=== PATIENT | female | born 1955 | race Caucasian/White ===

== ENCOUNTER 2023-09-18 17:00 | Inpatient (IN) | payer OTHER, SELFPAY ==
[2023-09-18] VITALS (10 sets, daily range): BP systolic 130–181; BP diastolic 57–115; BMI 20.4; BMI 19.0; BMI 19.5
[2023-09-18 12:35] LABS: % Basophils 0.4 % (0-2); % Eosinophils 0.5 % (0-6); % Immature Granulocytes 0.4 % (0-0.5); % Lymphocytes 5.7 % (20.5-51.1); % Monocytes 4.4 % (1.7-9.3); % Neutrophils 88.6 % (42.2-75.2); Absolute Basophils 0.1 10^3/uL (0-0.2); Absolute Eosinophils 0.1 10^3/uL (0-0.7); Absolute Immature Granulocytes 0.1 10^3/uL (0-0.05); Absolute Lymphocytes 0.9 10^3/uL (1.2-3.4); Absolute Monocytes 0.7 10^3/uL (0.1-0.6); Hemoglobin 13.1 g/dL (12.0-16.0); Mean Corp Hgb Conc. 35.4 g/dL (33.0-37.0); Mean Corpuscular Hgb 34.2 pg (27.0-31.0); Mean Corpuscular Volume 96.6 fL (81.0-99.0); Mean Platelet Volume 9.8 fL (7.4-10.4); Nucleated Red Blood Cells % 0 %; Platelet Count 312 10^3/uL (130-400); Red Blood Cell Count 3.83 10^6/uL (4.20-5.40); Red Cell Dist. Width 13.6 % (11.5-14.5); White Blood Cell Count 15.8 10^3/uL (4.8-10.8)
--- NOTE | 2023-09-18 12:38 | ED.GENMED ---
History of Present Illness
General
Chief Complaint: Abdominal Symptoms
Source: patient
Exam Limitations: none
Time Seen by Provider: 09/18/23 12:30
Nursing documentation reviewed up to this point in time: agreed with
Travel History
Have you had any contact with someone who has COVID-19?: No
Do you have any symptoms of coronavirus? Fever > 100 degrees, chills, cough, shortness of breath, sore throat, loss of taste or smell, muscle aches, or headache?: No
History of Present Illness
History of Present Illness:
68-year-old female presents emergency department complaining of vomiting all night, shortness of breath, chest tightness, body aches.
Past History
Past History
ED Past Medical History: Asthma, CAD, CHF, Psychiatric (Anxiety, Depression, Obsessive compulsive disorder) and Other (Rheumatoid arthritis and lumbar disc disease, cardiomyopathy)
ED Past Surgical History: Gynecological (partial hysterectomy) and Orthopedic (Back surgery X 2 L4-L5, Left foot surgery)
Social History
Tobacco: Former smoker
Alcohol: Occasional
Drug: Marijuana
Personal:
Living: with family
Family History
Family History: Unable to obtain
Review of Systems
Review of Systems
Allergies reviewed?: Yes
All Other Systems: Not applicable
Constitutional: Reports chills
EENT: Reports no symptoms
Respiratory: Reports cough and trouble breathing
Cardiac: Reports no symptoms
ABD/GI: Reports vomiting and diarrhea
: Reports no symptoms
Musculoskeletal: Reports muscle pain
Skin: Reports no symptoms
Neurological: Reports no symptoms
Endocrine: Reports no symptoms
Hematologic/Lymphatic: Reports no symptoms
Psychiatric: Reports no symptoms
Phy Exam
Physical Exam
Physical Exam:
Physical Exam
General: Appears uncomfortable
Neck: supple. no meningeal signs. normal posterior pharynx
Heart: s1/s2 tachycardia, no murmur. equal radial
pulses.
HEENT: Pupils equal round reactive to light, EOMI
Lungs: Mild respiratory distress. Wheezing bilaterally
Abdomen: normal bowel sounds. not tender. no CVAT
Neuro: alert and oriented. no focal neurological deficits cranial nerves II through XII intact
Skin: no rash
Psychiatric: well kept. interactive and cooperative
Extremities: no edema. no calf tenderness. negative homans. good distal pulses
Course
Orders/Labs/Results
Orders:
Orders
09/18/23 12:05
EKG [Electrocardiogram (*1)] Urgent
Reason for Study: Shortness of Breath
09/18/23 12:06
EKG- Treatment ONCE
09/18/23 12:20
COVID-19 Antigen Urgent
Source: Nasal Swab
Complete Blood Count/With Diff Urgent
Comprehensive Metabolic Panel Urgent
NT-proBNP Urgent
Troponin I Urgent
Influenza A+B Rapid Molecular Urgent
FRANCISCO Source: Nasal Swab
Specimen Description:
09/18/23 12:36
Ondansetron Injectable [Zofran] 4 mg IV NOW STA
09/18/23 12:37
CR Chest - 2 Views Urgent
Comment:
Reason For Exam: short of breath, fever
09/18/23 12:46
Lactic Acid Q4H
Comment: CANCEL 2nd LACTIC ACID IF 1st LACTIC ACID IS LESS THAN 2
Blood Culture Q30M
FRANCISCO Source: Blood/Venous
Specimen Description:
Blood Culture Q30M
FRANCISCO Source: Blood/Venous
Specimen Description:
09/18/23 13:47
0.9% Sodium Chloride 1000 ml [Nss] 1,000 ml IV BOLUS
09/18/23 13:49
Acetaminophen [Tylenol] 650 mg PO NOW STA
09/18/23 13:52
Ipratropium/Albuterol Sulfate [Duoneb] 3 ml INH R NOW ONE
09/18/23 13:54
Trimethobenzamide [Tigan] 200 mg IM NOW STA
09/18/23 13:58
Dexamethasone Sod Phosphate [Decadron] 10 mg IV NOW STA
09/18/23 16:30
Ibuprofen [Motrin] 200 mg PO NOW STA
09/18/23 16:31
Admit/Transfer Patient As Directed
Co-Sign Provider:
Level of Care: Inpatient admission
Assign to:: Telemetry
Physician / Group: Tiny Morocho
Diagnosis: Viral Gastroenteritis Asthma Exacerbation
Reason for Telemetry: Arrhythmia
Date to Stop Telemetry: 09/21/23
Time to Stop Telemetry: 11:00
Reason for Hospitalization: Viral Gastroenteritis Asthma Exacerbation
Expected length of stay greater than two midnights?: Yes
ELOS- Estimated Length of Stay in days: 2
I certify the patient meets the requirements for IP care: Yes
CT Head W/o Iv Contrast Routine
Comment:
Reason For Exam: headache nausea vomiting
09/18/23 16:38
Code Status As Directed
Resuscitation Status: Full Code
09/18/23 18:04
0.9% Sodium Chloride 1000 ml [Nss] 1,000 ml IV 60 mls/hr
Acetaminophen [Tylenol] 1,000 mg PO TIDPRN PRN
Enoxaparin Sodium [Lovenox] 40 mg SC QPM
Morphine Sulfate 2 mg IV Q4HPRN PRN
Ondansetron Injectable [Zofran] 4 mg IV Q6HPRN PRN
Oxycodone [Roxicodone] 5 mg PO Q4HPRN PRN
Pantoprazole [Protonix] 40 mg PO DAILY
09/18/23 18:04
Activity As Directed
Activity Level: With Assistance
I/O [Intake/ Output] As Directed
Frequency: Per unit guidelines
Precautions As Directed
Type of Precautions: Other
Comment: fall
Vital Signs As Directed
Frequency: Per unit guidelines
Weight As Directed
Frequency: Daily
Xopenex Reason for Use As Directed
Reason for ordering Xopenex instead of Albuterol: tachycardia
DX Deep Vein Thrombosis Video Routine
09/18/23 20:00
Carvedilol [Coreg] 3.125 mg PO BID
Levalbuterol [Xopenex 1.25 mg Inhalant Solution] 1.25 mg INH R TID
09/19/23 02:00
Dexamethasone Sod Phosphate [Decadron] 4 mg IV Q12H
09/19/23 Breakfast
Clear Liquid
Complete Blood Count/No Diff IN AM
Comprehensive Metabolic Panel IN AM
Magnesium IN AM
09/19/23 08:00
Aspirin Low Dose EC [Aspir Low (Enteric Coated)] 81 mg PO DAILY
FOLic ACID [Folvite] 1 mg PO DAILY
Magnesium Oxide 500 mg PO DAILY
09/20/23 06:00
Complete Blood Count/No Diff IN AM
Comprehensive Metabolic Panel IN AM
Magnesium IN AM
09/21/23 06:00
Complete Blood Count/No Diff IN AM
Comprehensive Metabolic Panel IN AM
Magnesium IN AM
09/21/23 11:00
DC Protocol for Telemetry ONCE
09/22/23 06:00
Complete Blood Count/No Diff IN AM
Comprehensive Metabolic Panel IN AM
Magnesium IN AM
09/23/23 06:00
Complete Blood Count/No Diff IN AM
Comprehensive Metabolic Panel IN AM
Magnesium IN AM
09/24/23 06:00
Complete Blood Count/No Diff IN AM
Comprehensive Metabolic Panel IN AM
Magnesium IN AM
09/25/23 06:00
Complete Blood Count/No Diff IN AM
Comprehensive Metabolic Panel IN AM
Magnesium IN AM
Abnormal Lab Results
09/18/23
12:20
WBC 15.8 H 10^3/uL
(4.8-10.8)
RBC 3.83 L 10^6/uL
(4.20-5.40)
MCH 34.2 H pg
(27.0-31.0)
Abs Immat Gran (auto) 0.1 H 10^3/uL
(0-0.05)
Absolute Neuts (auto) 14.0 H 10^3/uL
(1.4-6.5)
Absolute Lymphs (auto) 0.9 L 10^3/uL
(1.2-3.4)
Absolute Monos (auto) 0.7 H 10^3/uL
(0.1-0.6)
Neutrophils % 88.6 H %
(42.2-75.2)
Lymphocytes % 5.7 L %
(20.5-51.1)
BUN 6 L mg/dl
(7-17)
Creatinine 0.4 L mg/dL
(0.6-1.0)
Glucose 140 H mg/dl
(70-99)
AST 64 H U/L
(14-36)
ALT 56 H U/L
(0-35)
Total Protein 8.3 H g/dl
(6.3-8.2)
09/18/23 12:20
09/18/23 12:20
Vital Signs
Initial and Last Documented VS:
Initial Vital Signs
Temp Pulse Resp BP Pulse Ox
99.8 F 122 18 168/115 92
09/18/23 12:02 09/18/23 12:02 09/18/23 12:02 09/18/23 12:02 09/18/23 12:02
Last Documented Vital Signs
Temp Pulse Resp BP Pulse Ox
99.7 F 107 18 155/78 96
09/18/23 18:15 09/18/23 18:15 09/18/23 18:15 09/18/23 18:15 09/18/23 18:15
MDM/Problems Addressed
Differential Diagnosis Includes:
Sepsis, gastroenteritis, pneumonia
MDM/Problems Addressed:
68-year-old female with viral gastroenteritis, nausea vomiting, asthma exacerbation. Do not suspect PE. Admit to hospitalist. IV fluids, Decadron, duo nebulizer given.
Chronic conditions affecting care: Cardiomyopathy and Asthma
Acute Exacerbation and/or Progression of Chronic Illness: Cardiomyopathy and Asthma
*Radiology
Radiology exam reviewed: radiology read reviewed (Chest x-ray no acute findings)
*Pulse Oximetry
Patient hypoxic: yes
*EKG
Interpreted by ED Provider?: Yes
EKG Intrepretation Date: 09/18/23
EKG Intrepretation Time: 12:09
Interpretation: abnormal
Comparison EKG: changes noted
Heart Rate: 104
Rate: tachycardiac
Rhythm: sinus tachycardia
Mcgraw: normal axis
Interval: normal interval
QRS Pattern: normal QRS
Ischemia: no ischemia
*Bookkeeping Machine Mechanic Interpretation
Rate: tachycardiac
Interpretation: abnormal
Heart Rate: 110
Rhythm: sinus tachycardia
*Critical Care Note
Total Time (30-74mins, 75-104mins- exclusive of procedures): Not Applicable
Data Reviewed
Review of Other/Old Records Reveals: Testing (echo 12/18@@ shows ef 60-65)
Patient Management
Social determinants of health affecting care: Living situation
Discussion with other providers: Hospitalist
Escalation/DeEscalation of care consider admission/obs:
admit indicated
ED Attending Note
-
Portions of this chart may have been created with voice recognition software.� Occasional wrong word or��sound alike� substitutions may have occurred due to the inherent limitations of voice recognition software.
Discharge Plan
Departure
Patient Disposition: Admit
Date of Disposition: 09/18/23
Time of Disposition: 13:58
Admit to: Telemetry
Presentation/result/management discussed w/ accepting MD/DO: Hospitalist
Patient with high blood pressure during this ER visit?: Yes
Condition: Fair
Discharge Problem:
Vomiting, Asthma exacerbation
Interventions
Interventions:
*Risk Screen - Suicide Last Done: 09/18/23 18:08
*General Assessment Last Done: 09/18/23 12:04
*Neglect/Abuse Screening Last Done: 09/18/23 12:04
ED- Fall Risk Assessment Last Done: 09/18/23 12:33
*ED COVID-19 Vaccine History Last Done: 09/18/23 12:02
*Nursing Disposition Last Done: 09/18/23 17:39
XM-Uhifyd-[id number] Assessment Last Done: 09/18/23 12:17
Discharge Date and Time
Discharge Date/Time: 09/18/23 17:40
[2023-09-18] MEDS: ZOFRAN 4 MG IV (12:50)
[2023-09-18 12:51] LABS: ALT (SGPT) 56 U/L (0-35); AST (SGOT) 64 U/L (14-36); Alkaline Phosphatase 82 U/L (38-126); Blood Urea Nitrogen 6 mg/dl (7-17); Calcium 9.4 mg/dl (8.4-10.2); Carbon Dioxide 24 mmol/L (22-30); Chloride 103 mmol/L (98-107); Estimated Creatinine Clearance 67 ml/min; Glucose 140 mg/dl (70-99); Potassium 3.6 mmol/L (3.5-5.1); Sodium 135 mmol/L (135-145); Total Bilirubin 0.7 mg/dl (0.2-1.3); Total Protein 8.3 g/dl (6.3-8.2); eGFR > 60.00
[2023-09-18 13:09] LABS: Lactic Acid 1.4 mmol/L (0.7-2.0)
[2023-09-18 13:13] LABS: NT-proBNP 364 pg/ml
[2023-09-18 13:24] LABS: COVID-19 Antigen Negative (Negative)
[2023-09-18] MEDS: NSS 1000 IV ×2 (14:05→18:38)
[2023-09-18] MEDS: DECADRON 10 MG IV (14:06)
[2023-09-18] MEDS: TIGAN 200 MG IM (14:07)
--- NOTE | 2023-09-18 14:10 | HPS.HSE ---
Family Physician
-
Family Physician: Mae Fragoso
Chief Complaint
-
Nausea vomiting
History of Present Illness
68 female history CAD CHF anxiety depression OCD rheumatoid arthritis lumbar disc disease partial hysterectomy presents with 1 to 2 days duration nausea vomiting diarrhea intermittent fever chills body ache headache short of breath coughing wheezing
chest tightness. Improved with steroids antiemetic bronchodilator. Remains unable to tolerate oral intake. Leukocytosis possibly stress reactive. Sinus tachy possibly due to hypovolemia nausea vomiting. Troponin BNP negative no lactic acidosis
no hypotension. Mild transaminitis. CXR unremarkable
Medical History
Past Medical History
Past Medical History: Reports Other (as above)
Past Surgical History: Reports Other (as above)
Social History
Tobacco: Former Smoker
Alcohol: Occasional
Drug: Marijuana
Personal:
Living: With Family
Family History
Family History: Not pertinent (reviewed)
Allergies / Home Medications
Allergies reflects when Allergies were last updated in [facility].
Home Medications with original date entered in [facility]
Allergy/Medication List:
Allergies
Allergy/AdvReac Type Severity Reaction Status Date / Time
amoxicillin trihydrate Allergy Rash Verified 09/18/23 12:05
[From Augmentin]
clarithromycin [From Biaxin] Allergy Rash Verified 09/18/23 12:05
hydroxychloroquine Allergy Rash Verified 09/18/23 12:05
[From Plaquenil]
levofloxacin [From Levaquin] Allergy RASH/Itchin Verified 09/18/23 12:05
g
Penicillins Allergy Unknown Verified 09/18/23 12:05
potassium clavulanate Allergy Rash Verified 09/18/23 12:05
[From Augmentin]
Home Medications
Medical Marijuana 1 - 2 puff inhalation HSPRN PRN mild pain/glaucoma 09/18/23
[place] 3 1 cap PO DAILY 09/18/23
acetaminophen 500 mg tablet (Tylenol Extra Strength) 1,000 mg PO DAILYPRN PRN mild pain 09/18/23
adalimumab 40 mg/0.4 mL subcutaneous pen kit (Humira(CF) Pen) 40 mg SC Q2W 09/18/23
aspirin 81 mg tablet,delayed release 81 mg PO DAILY 09/18/23
carvedilol 3.125 mg tablet 3.125 mg PO BID 09/18/23
denosumab 60 mg/mL subcutaneous syringe (Prolia) 60 mg SC [id number] 09/18/23
fluticasone 250 mcg-salmeterol 50 mcg/dose blistr powdr for inhalation (Advair Diskus) 1 inh inhalation R BIDPRN PRN sob 09/18/23
folic acid 1 mg tablet 1 mg PO DAILY 09/18/23
magnesium oxide 500 mg PO DAILY 09/18/23
methotrexate sodium 2.5 mg tablet 17.5 mg PO MO@0800 09/18/23
omeprazole 20 mg capsule,delayed release 20 mg PO DAILY 09/18/23
zinc 50 mg tablet 50 mg PO DAILY 09/18/23
Review of Systems
-
A 12 point ROS was completed and negative except as noted: Yes
Constitutional: Reports Other (as below)
Physical Exam
Vital Signs
Vital Signs
Temp Pulse Resp BP Pulse Ox
98.6 F 108 30 163/98 98
09/18/23 12:20 09/18/23 13:30 09/18/23 13:30 09/18/23 13:00 09/18/23 13:15
Physical Exam
General: Other (as below)
Laboratory Results
-
09/18/23 12:20
09/18/23 12:20
Laboratory Results
Lactic Acid Cancelled 09/18/23 16:45
Total Bilirubin 0.7 mg/dl (0.2-1.3) 09/18/23 12:20
AST 64 U/L (14-36) H 09/18/23 12:20
ALT 56 U/L (0-35) H 09/18/23 12:20
Alkaline Phosphatase 82 U/L (38-126) 09/18/23 12:20
Impression/Plan
-
ROS
General: Reports fevers chills general malaise body denies weight gain/loss
Neuro: Denies seizure shaking loss of consciousness dizziness vertigo
Psych: denies depression hallucinations confusion manic episodes
Endocrine: Denies polyuria polydipsia polyphagia heat/cold intolerance
HEENT: Denies blindness visual disturbances epistaxis
Pulmonary: Reports shortness of breath cough wheezing
Cardiovascular: Reports chest tightness since resolved
Hematology: denies signs symptoms of anemia easy bruising/bleeding
Gastrointestinal: denies nausea vomiting diarrhea constipation hematemesis hematochezia melena
Genito-Urinary: denies retention incontinence dysuria
Musculoskeletal: Reports generalized body ache
Dermatology: denies rash laceration bruising
Physical Exam
General: No pallor, cyanosis, or jaundice.
HEENT: Throat clear. PERRLA Normocephalic atraumatic
NECK: Supple. No JVD Carotid Bruits
RESPIRATORY: Lungs clear to auscultation. No crackles wheezes stridor
CVS: S1, S2 normal. RRR. No murmur, rub or gallop.
ABDOMEN: Soft, non-tender. No distension. BS+/normal.
EXTREMITIES: No peripheral cyanosis or edema.
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 No focal deficits.
IMPRESSION:
68 female history CAD CHF anxiety depression OCD rheumatoid arthritis lumbar disc disease partial hysterectomy presents with 1 to 2 days duration nausea vomiting diarrhea intermittent fever chills body ache headache short of breath coughing wheezing
chest tightness. Improved with steroids antiemetic bronchodilator. Remains unable to tolerate oral intake. Leukocytosis possibly stress reactive. Sinus tachy possibly due to hypovolemia nausea vomiting. Troponin BNP negative no lactic acidosis
no hypotension. Mild transaminitis. CXR unremarkable
PLAN:
#Viral gastroenteritis nausea vomiting diarrhea
#Asthma exacerbation
#History of CHF recovered EF
#Hypertension
COVID flu negative
Cautious IV fluid hydration
Daily weight I/O
cafeteria monitor
Clear liquid diet advance as tolerated
Stool studies
Continue Coreg with holding parameters
Hydralazine as needed SBP>140 or DBP>100
pain control
#Asthma exacerbation
Xopenex 3 times daily instead of DuoNeb due to tachycardia
Steroid taper
#Symptoms preceded by persistent headache
As needed Tylenol
Ibuprofen once
Check CT head
DVT prophylaxis Lovenox
GI prophylaxis Protonix
Meds reconciled and resume as appropriate
Full code
Discussed with patient and her Malcom
I spent a total of 77 minutes with the patient or on the floor. More than 50% of this time involved counseling and coordination of care.
[2023-09-18 14:22] LABS: Troponin I < 0.012 ng/ml
[2023-09-18] MEDS: DUONEB 3 ML INH (14:55)
[2023-09-18] MEDS: TYLENOL 650 MG PO (14:55)
[2023-09-18] MEDS: MOTRIN 200 MG PO (17:07)
[2023-09-18] MEDS: LOVENOX 40 MG SC (18:38)
[2023-09-18] MEDS: MORPHINE SULFATE 2 MG IV (18:38)
[2023-09-18] MEDS: PROTONIX 40 MG PO (18:38)
[2023-09-18] MEDS: XOPENEX 1.25 MG INHALANT SOLUTION INH (19:34)
--- NOTE | 2023-09-18 19:38 | PTCARENOTE ---
pt admitted to room 325 from ED. oriented to room and unit. admission questions completed. pt AAOX3- reports 10 headache- given morphine for pain.
--- NOTE | 2023-09-18 21:00 | PTCARENOTE ---
@2030; Pt stated,'I have #10 headache and the medication did not help'.Instructed MIGUEL Diez on above note.Received order for IV compazine and administered with tylenol 1000mg po.
[2023-09-18] MEDS: TYLENOL 1000 MG PO (21:20)
[2023-09-18] MEDS: COREG 3.125 MG PO (21:21)
[2023-09-18] MEDS: COMPAZINE 5 MG IV (21:22)
[2023-09-19] VITALS (8 sets, daily range): BP systolic 132–166; BP diastolic 50–85; BMI 19.0
[2023-09-19] MEDS: DECADRON 4 MG IV (02:29)
[2023-09-19] MEDS: FLUSH (NSS) 2 FLUSH IV (02:30)
[2023-09-19] MEDS: ATIVAN 0.25 MG IV (03:40)
[2023-09-19] MEDS: NSS (PRESERVATIVE FREE) 0.125 ML IV (03:41)
--- NOTE | 2023-09-19 04:00 | PTCARENOTE ---
@9393;Instructed MIGUEL Eid on pt c/o can't get a breath.Vital signs stable and POX on 4liters =96%, vomited moderate amount of clear water like vomitus x1,and denies anxiety and wants to see a personalization specialist.
[2023-09-19] MEDS: XOPENEX 1.25 MG INHALANT SOLUTION INH ×3 (06:18→19:30)
[2023-09-19 06:38] LABS: Hematocrit 33.2 % (37.0-47.0); Hemoglobin 11.7 g/dL (12.0-16.0); Mean Corp Hgb Conc. 35.2 g/dL (33.0-37.0); Mean Corpuscular Hgb 33.9 pg (27.0-31.0); Mean Corpuscular Volume 96.2 fL (81.0-99.0); Platelet Count 270 10^3/uL (130-400); Red Blood Cell Count 3.45 10^6/uL (4.20-5.40); Red Cell Dist. Width 13.5 % (11.5-14.5); White Blood Cell Count 12.2 10^3/uL (4.8-10.8)
[2023-09-19 07:07] LABS: ALT (SGPT) 61 U/L (0-35); AST (SGOT) 72 U/L (14-36); Albumin 4.4 g/dl (3.5-5.0); Alkaline Phosphatase 61 U/L (38-126); Blood Urea Nitrogen 6 mg/dl (7-17); Calcium 8.9 mg/dl (8.4-10.2); Carbon Dioxide 29 mmol/L (22-30); Chloride 99 mmol/L (98-107); Estimated Creatinine Clearance 65 ml/min; Glucose 148 mg/dl (70-99); Magnesium 1.9 mg/dl (1.6-2.3); Phosphorus 3.4 mg/dl (2.5-4.5); Sodium 136 mmol/L (135-145); Total Bilirubin 0.5 mg/dl (0.2-1.3); Total Protein 7.4 g/dl (6.3-8.2); eGFR > 60.00
--- NOTE | 2023-09-19 07:25 | W.PN.HOSP.TC ---
Addendum entered and electronically signed by Tiny Morocho MD 09/20/23 13:08:
Unlikely sepsis as patient improving without need abx
tachycardia can be attributed to anxiety and side effect albuterol neb treatment, since resolved with switch to xopenex
Tachypnea may also be attributed to anxiety
White count elevated likely stress reactive due to recent nausea vomiting, again resolution without antibiotics makes sepsis unlikely.
Original Note:
Today's Communication/Plan
-
continue bronchodilators
discontinue and monitor off steroids
wean oxygen supplementation as tolerated
prn ativan
Home oxygen assessment in AM
Assessment / Plan
Assessment / Plan
Physical Exam
General: No pallor, cyanosis, or jaundice.
HEENT: Throat clear. PERRLA Normocephalic atraumatic
NECK: Supple. No JVD Carotid Bruits
RESPIRATORY: Lungs clear to auscultation. Wheezing mild/faint
CVS: S1, S2 normal. RRR.� No murmur, rub or gallop.
ABDOMEN: Soft, non-tender. No distension. BS+/normal.
EXTREMITIES: No peripheral cyanosis or edema.
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 No focal deficits.
IMPRESSION:
68 female history CAD CHF anxiety depression OCD rheumatoid arthritis lumbar disc disease partial hysterectomy presents with 1 to 2 days duration nausea vomiting diarrhea intermittent fever chills body ache headache short of breath coughing wheezing
chest tightness.� Improved with steroids antiemetic bronchodilator.� Remains unable to tolerate oral intake.� Leukocytosis possibly stress reactive.� Sinus tachy possibly due to hypovolemia nausea vomiting.� Troponin BNP negative no lactic acidosis
no hypotension.� Mild transaminitis.� CXR unremarkable
PLAN:
#Viral URI/gastroenteritis nausea vomiting diarrhea
#Asthma exacerbation
#History of CHF recovered EF
#Hypertension
COVID flu negative
Cautious IV fluid hydration
Daily weight I/O
quality assurance monitor final
Clear liquid diet advance as tolerated, remains symptomatic nauseous, cont current diet for now
Diarrhea resolved Stool studies canceled
Continue Coreg with holding parameters
Hydralazine as needed SBP>140 or DBP>100
pain control
#Asthma exacerbation
Xopenex 3 times daily instead of DuoNeb due to tachycardia
Steroids discontinued given mild/faint wheezing, possible exacerbating patient's anxiety (significant adverse effect outweighing minimal benefit)
#Symptoms preceded by persistent headache
As needed Tylenol
Ibuprofen once
CT head appreciated
-no acute abn's,
-Mild periventricular small vessel ischemic disease. New.
-Mild nonacute sinusitis. Improved
anxiety depression OCD
on medicinal marijuana at home
prn ativan while here
DVT prophylaxis Lovenox
GI prophylaxis Protonix
Full code
I spent a total of 57 minutes with the patient or on the floor. More than 50% of this time involved counseling and coordination of care.
Anticipated Discharge: 24 - 48 hours
Subjective/Interval History
-
Date of Service: September 19, 2023
Reports overall improvement in symptoms. Diarrhea resolved. Headache intermittent but improving, manageable with prn Tylenol. Patient reports feeling anxious, some improvement with prn ativan.
Objective Data
-
Labs:
Laboratory Results
09/19/23
06:17
WBC 12.2 H
Hgb 11.7 L
Hct 33.2 L
Plt Count 270
Sodium 136
Potassium 4.0
Chloride 99
Carbon Dioxide 29
BUN 6 L
Creatinine 0.4 L
Glucose 148 H
Calcium 8.9
Total Bilirubin 0.5
AST 72 H
ALT 61 H
Alkaline Phosphatase 61
Vital Signs:
Vital Signs
Temp Pulse Resp BP Pulse Ox
98.6 F 90 16 146/85 100
09/19/23 03:00 09/19/23 06:20 09/19/23 06:20 09/19/23 03:00 09/19/23 06:20
I&O
09/18/23 09/19/23 09/20/23
06:59 06:59 06:59
Intake Total 1680 / 1680
Balance 1680 / 1680
[2023-09-19] MEDS: ASPIR LOW (ENTERIC COATED) 81 MG PO (08:48)
[2023-09-19] MEDS: COREG 3.125 MG PO ×2 (08:48→20:09)
[2023-09-19] MEDS: FOLVITE 1 MG PO (08:48)
[2023-09-19] MEDS: MAGNESIUM OXIDE 500 MG PO (08:48)
[2023-09-19] MEDS: PROTONIX 40 MG PO (08:48)
[2023-09-19] MEDS: TYLENOL 1000 MG PO ×2 (10:14→17:47)
[2023-09-19] MEDS: ZOFRAN 4 MG IV (10:14)
[2023-09-19] MEDS: NSS 1000 IV (10:16)
[2023-09-19] MEDS: XOPENEX 0.63 MG INHALANT SOLUTION 1.25 MG INH (10:37)
[2023-09-19] MEDS: ROXICODONE 5 MG PO (14:05)
[2023-09-19] MEDS: LOVENOX 40 MG SC (17:44)
[2023-09-19 20:08] LABS: Hepatitis C Antibody Negative (Negative)
[2023-09-19] MEDS: ATIVAN 0.5 MG PO (22:35)
[2023-09-20] MEDS: TYLENOL 1000 MG PO ×2 (00:08→09:13)
[2023-09-20] MEDS: XOPENEX 1.25 MG INHALANT SOLUTION INH ×3 (00:17→13:13)
[2023-09-20] MEDS: NSS 1000 IV (01:58)
[2023-09-20 03:15] VITALS: BP 157/73
[2023-09-20 06:00] VITALS: BMI 19.2
[2023-09-20 06:13] LABS: Hematocrit 33.3 % (37.0-47.0); Hemoglobin 11.3 g/dL (12.0-16.0); Mean Corp Hgb Conc. 33.9 g/dL (33.0-37.0); Mean Corpuscular Hgb 33.5 pg (27.0-31.0); Mean Corpuscular Volume 98.8 fL (81.0-99.0); Mean Platelet Volume 10.4 fL (7.4-10.4); Platelet Count 233 10^3/uL (130-400); Red Blood Cell Count 3.37 10^6/uL (4.20-5.40)
[2023-09-20 06:37] LABS: ALT (SGPT) 61 U/L (0-35); AST (SGOT) 70 U/L (14-36); Albumin 3.7 g/dl (3.5-5.0); Alkaline Phosphatase 51 U/L (38-126); Blood Urea Nitrogen 7 mg/dl (7-17); Calcium 8.3 mg/dl (8.4-10.2); Carbon Dioxide 29 mmol/L (22-30); Chloride 100 mmol/L (98-107); Estimated Creatinine Clearance 65 ml/min; Glucose 103 mg/dl (70-99); Magnesium 2.3 mg/dl (1.6-2.3); Phosphorus 2.7 mg/dl (2.5-4.5); Potassium 3.4 mmol/L (3.5-5.1); Sodium 137 mmol/L (135-145); Total Bilirubin 0.5 mg/dl (0.2-1.3); Total Protein 6.3 g/dl (6.3-8.2); eGFR > 60.00
[2023-09-20 07:00] VITALS: BP 144/85
[2023-09-20] MEDS: ASPIR LOW (ENTERIC COATED) 81 MG PO (09:08)
[2023-09-20] MEDS: FOLVITE 1 MG PO (09:08)
[2023-09-20] MEDS: MAGNESIUM OXIDE 500 MG PO (09:08)
[2023-09-20] MEDS: PROTONIX 40 MG PO (09:08)
[2023-09-20] MEDS: COREG 3.125 MG PO (09:09)
[2023-09-20 10:13] VITALS: O2SAT 91; O2SAT 94
--- NOTE | 2023-09-20 10:34 | PN.CDI ---
CDI
- -
CDI:
Physician Documentation Request
Admit Date: 09/18/23 17:00
Dear Doctor Rashawn,
Patient admitted for gastroenteritis.
Selected Entries
09/18/23
12:02 09/18/23
13:15 09/18/23
15:00
Pulse 122 119 114
09/18/23
12:20
WBC 15.8 H
09/18/23
14:30 09/18/23
14:45 09/18/23
15:15
Resp Rate 32 37 32
Please clarify which of the following most accurately describes the status of the patient's infection:
Sepsis, POA
- Systemic manifestations of infection, with 2 or more SIRS criteria which include:
- Fever >100.4 degrees F or hypothermia < 96.8 degrees F
- Leukocytosis - WBC > 12,000 or leukopenia - WBC < 4,000 or > 10% bands
- Tachycardia > 90 beats per minute
- Tachypnea - RR > 20 breaths per minute or PaCO2 , 32mmHg
Source: Merck Manual 2012
Viral gastroenteritis
Other
Use of terms such as suspected, likely, concern for, or probable (associated with a specific diagnosis that is being evaluated, monitored, or treated as if it exists) are acceptable and can be coded in the inpatient setting, when documented at the
time of discharge.
Thank you,
Kassy Ricks RN, BSN
CDI Specialist
Available via [employer] text
Please use your independent medical judgment in providing your response.
[2023-09-20 11:23] VITALS: BP 122/52
--- NOTE | 2023-09-20 11:39 | CM ---
Reviewed chart, patient was not in room, therefore placed a call to patient's spouse who was able to provide information for assessment. Patient's spouse stated that patient lives with her in a two story home with 4 steps to enter and one step
through the garage. He described patient has independent with her ADLs, personal care, dressing, bathing and toileting. She ambulates without the use of an assistive device but she does have a cane.
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
She drives and can get to all of her appointments and does her own shopping.
She has had VN services in the past through but no SNF placement.
She has a PCP Dr. Mae Fragoso and goes to the [facility] in [place] at the [facility] for all of her medications.
Patient's spouse feels that she is at baseline and can return home when she is cleared medically. He stated that patient has not been feeling any better and he is hopeful that she improves soon.
Plan: Case management will continue to follow and assist with discharge planning. Home when stable.
--- NOTE | 2023-09-20 15:01 | W.PN.HOSP.TC ---
Addendum entered and electronically signed by Ese Eller MD 09/20/23 16:56:
Dictation- [id number]
Addendum entered and electronically signed by Ese Eller MD 09/20/23 15:24:
Didnt qualify for Home O2
Addendum entered and electronically signed by Ese Eller MD 09/20/23 15:18:
Elevated LFTs. Patient admits to drinking 2-3 beers 4 times a week. This is likely secondary to that. Patient has seen Dr. Penaloza 2 weeks ago. She was positive for H. pylori and this was treated and she completed treatment. Patient was advised
to stop drinking
Alcohol and repeat LFTs.
Also advised to see Dr. Penaloza again.
D/W RN
Discharge time 33 min
Original Note:
Today's Communication/Plan
-
check Home O2 assessment
Discharge
Assessment / Plan
Assessment / Plan
CVS: S1-S2 normal
Chest: CTA B/L
Abdomen: Soft, NT / Bowel sounds present
Extremities: No edema, normal pulses
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
IMPRESSION:
68 female history CAD CHF anxiety depression OCD rheumatoid arthritis lumbar disc disease partial hysterectomy presents with 1 to 2 days duration nausea vomiting diarrhea intermittent fever chills body ache headache short of breath coughing wheezing
chest tightness.� Improved with steroids antiemetic bronchodilator.� Remains unable to tolerate oral intake.� Leukocytosis possibly stress reactive.� Sinus tachy possibly due to hypovolemia nausea vomiting.� Troponin BNP negative no lactic acidosis
no hypotension.� Mild transaminitis.� CXR unremarkable
PLAN:
#Viral URI/gastroenteritis nausea vomiting diarrhea
No diarrhea since admission
Diarrhea resolved Stool studies canceled
Stop IVF
# Mild hypokalemia-replace
#Asthma exacerbation
On Advair as outpatient-continue chest exam is unremarkable today
Patient on room air
COVID flu negative
#History of CHF recovered EF
Takotsubo cardiomyopathy
Daily weight I/O
weight stable
#Hypertension
Continue Coreg with holding parameters
Hydralazine as needed SBP>140 or DBP>100
# Elevated AST and ALT-chronic since 2021
#Asthma exacerbation
Xopenex 3 times daily instead of DuoNeb due to tachycardia
Steroids discontinued given mild/faint wheezing, possible exacerbating patient's anxiety (significant adverse effect outweighing minimal benefit)
#Symptoms preceded by persistent headache
As needed Tylenol
CT head appreciated -no acute abn's,
#Anxiety depression OCD
on medicinal marijuana at home
prn ativan while here
#History of L2-L3 discectomy,Laminectomy
Osteoporosis on Prolia
# Rheumatoid arthritis-on Humira, methotrexate
# Glaucoma
#DVT prophylaxis Lovenox
#Full code
Pt wants to go home
Anticipated Discharge: Today
Subjective/Interval History
-
Date of Service: September 20, 2023
Objective Data
-
Labs:
Laboratory Results
09/20/23
05:56
WBC 8.0
Hgb 11.3 L
Hct 33.3 L
Plt Count 233
Sodium 137
Potassium 3.4 L
Chloride 100
Carbon Dioxide 29
BUN 7
Creatinine 0.5 L
Glucose 103 H
Calcium 8.3 L
Total Bilirubin 0.5
AST 70 H
ALT 61 H
Alkaline Phosphatase 51
Vital Signs:
Vital Signs
Temp Pulse Resp BP Pulse Ox
98.9 F 70 16 122/52 92
09/20/23 11:23 09/20/23 11:23 09/20/23 11:23 09/20/23 11:23 09/20/23 11:23
I&O
09/19/23 09/20/23 09/21/23
06:59 06:59 06:59
Intake Total 1680 / 1680 600 / 600
Balance 1680 / 1680 600 / 600
--- NOTE | 2023-09-20 15:24 | W.DS.TRANS ---
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
-
Discharge Instructions:
Sleep Apnea Risk Low
Discharge Diagnosis/Procedures Gastroenteritis, asthma, hypertension, recent
treatment for H. pylori, hypertension,
rheumatoid arthritis, anxiety and depression,
OCD, Elevated Liver tests
Diet As tolerated
Activity As tolerated
Driving Restrictions As prior to admission
Blood Work LFTS 2 weeks
Instructions:
Stand-Alone Forms:
Changes to Home Medications: Yes
Discharge Medications:
DC Medications w/original date entered in [employer]
[place] 3 1 cap PO DAILY Supplement 09/18/23
acetaminophen 500 mg tablet (Tylenol Extra Strength) 1,000 mg PO DAILYPRN PRN mild pain 09/18/23
adalimumab 40 mg/0.4 mL subcutaneous pen kit (Humira(CF) Pen) 40 mg SC Q2W rheumatoid arthritis 09/18/23
aspirin 81 mg tablet,delayed release 81 mg PO DAILY Blood Clot Prevention/Tx 09/18/23
carvedilol 3.125 mg tablet 3.125 mg PO BID Heart Disease/Condition 09/18/23
denosumab 60 mg/mL subcutaneous syringe (Prolia) 60 mg SC [id number] osteoporosis 09/18/23
fluticasone 250 mcg-salmeterol 50 mcg/dose blistr powdr for inhalation (Advair Diskus) 1 inh inhalation R BIDPRN PRN sob 09/18/23
folic acid 1 mg tablet 1 mg PO DAILY Supplement 09/18/23
magnesium oxide 500 mg PO DAILY Electrolyte Repletion 09/18/23
methotrexate sodium 2.5 mg tablet 17.5 mg PO MO@0800 rheumatoid arthritis 09/18/23
omeprazole 20 mg capsule,delayed release 20 mg PO DAILY Gastrointestinal Issue 09/18/23
zinc 50 mg tablet 50 mg PO DAILY Supplement 09/18/23
Home Medication Changes
Pending Results: No
[2023-09-20 15:45] VITALS: BP 153/70
[2023-09-20] MEDS: KCL 20 MEQ PO (16:21)
[2023-09-20] MEDS: LOVENOX SC (18:14)
--- NOTE | 2023-09-21 11:12 | W.PN.UPDATE ---
Update Note
Progress Note Update
Called to see how patient is doing.
She has nausea, ate a yoghurt. She is going to try more food a little bit later.
Advised to come back to hospital if she has continued nausea or vomiting and cant tolerate diet.
== END 2023-09-20 19:35 | disposition home or self-care (01) | DRG 392 ==
LOC: 3 WEST ACU 17:00
PROVIDERS: Emergency Medicine; ADMITTING PHYSICIAN Internal Medicine; ATTENDING PHYSICIAN Hospitalist; EMERGENCY PHYSICIAN Emergency Medicine; FAMILY PHYSICIAN Family Medicine
DX: A08.4 Viral intestinal infection, unspecified (principal); J45.901 Unspecified asthma with (acute) exacerbation; I50.32 Chronic diastolic (congestive) heart failure; I11.0 Hypertensive heart disease with heart failure; F32.A Depression, unspecified; F42.9 Obsessive-compulsive disorder, unspecified; F41.9 Anxiety disorder, unspecified; M06.9 Rheumatoid arthritis, unspecified; Z87.891 Personal history of nicotine dependence; Z11.52 Encounter for screening for COVID-19
CPT/HCPCS: 70450; 71046; 80053; 83605; 83735; 83880; 84100; 84484; 85025; 85027; 86803; 87040; 87502; 87811; 93005; 94640; 94761; 96361; 96372; 96374; 96375; 99285

== ENCOUNTER 2023-09-28 16:21 | Emergency (ER) | payer OTHER, SELFPAY ==
[2023-09-28 16:29] VITALS: BP 179/98
[2023-09-28 17:26] VITALS: BMI 19.3
[2023-09-28 17:28] VITALS: BP 155/99
--- NOTE | 2023-09-28 17:46 | ED.GENMED ---
History of Present Illness
General
Chief Complaint: Fatigue
Source: patient
Exam Limitations: none
Time Seen by Provider: 09/28/23 17:33
Nursing documentation reviewed up to this point in time: agreed with
Travel History
Have you had any contact with someone who has COVID-19?: No
Do you have any symptoms of coronavirus? Fever > 100 degrees, chills, cough, shortness of breath, sore throat, loss of taste or smell, muscle aches, or headache?: No
History of Present Illness
History of Present Illness:
Patient discharged from the hospital 10 days ago after being treated for gastroenteritis and asthma exacerbation, presents to ED reporting that she does not feel any better, but feels worse since being home. Patient reports ongoing cough with
shortness of breath as well as 'stomach pain', making it difficult for her to eat. Denies vomiting or diarrhea. Denies fever or chills. Denies sore throat. Denies dizziness. Patient reports weight loss along with worsening generalized weakness.
Past History
Past History
ED Past Medical History: Asthma, CAD, CHF, Psychiatric (Anxiety, Depression, Obsessive compulsive disorder) and Other (Rheumatoid arthritis and lumbar disc disease, cardiomyopathy)
ED Past Surgical History: Gynecological (partial hysterectomy) and Orthopedic (Back surgery X 2 L4-L5, Left foot surgery)
Social History
Tobacco: Former smoker
Alcohol: Occasional
Drug: Marijuana
Personal:
Living: with family
Family History
Family History: Unable to obtain
Review of Systems
Review of Systems
Allergies reviewed?: Yes
All Other Systems: ROS reviewed and negative except as documented in HPI and ROS
Constitutional: Reports fatigue; Denies fever
EENT: Reports no symptoms
Respiratory: Reports cough and trouble breathing
Cardiac: Reports no symptoms
ABD/GI: Reports abdominal pain and nausea; Denies vomiting or diarrhea
: Reports no symptoms
Musculoskeletal: Reports no symptoms
Skin: Reports no symptoms
Neurological: Reports weakness; Denies headache
Phy Exam
Physical Exam
Physical Exam:
Physical Exam
General: mild distress, not acutely ill. afebrile
Head: nc/at. eomi
Neck: supple. no meningeal signs.
Heart: s1/s2 regular rate and rhythm, no murmur. equal radial pulses.
Lungs: no acute respiratory distress. mild expiratory wheezing noted over left lower base.
Abdomen: normal bowel sounds. not tender. no distention
Neuro: alert and oriented. no focal neurological deficits
Skin: no rash
Psychiatric: well kept. interactive and cooperative
Extremities: no edema. no calf tenderness.
Course
Orders/Labs/Results
Orders:
Orders
09/28/23 17:38
Electrocardiogram (*1) Urgent
Reason for Study: Fatigue / Weakness
EKG- Treatment ONCE
09/28/23 17:44
CR Chest - 2 Views Urgent
Comment:
Reason For Exam: cough/sob
09/28/23 17:45
0.9% Sodium Chloride 1000 ml [Nss] 1,000 ml IV BOLUS
Ipratropium/Albuterol Sulfate [Duoneb] 3 ml INH R NOW STA
Pantoprazole [Protonix IV] 40 mg IV NOW STA
09/28/23 17:46
D-Dimer Urgent
09/28/23 17:47
Alcohol Urgent
Complete Blood Count/With Diff Urgent
Comprehensive Metabolic Panel Urgent
Magnesium Urgent
TSH Urgent
Troponin I Urgent
09/28/23 18:02
Urinalysis Reflex To Culture Urgent
Date Specimen was Collected: 09/28/23
Time Specimen was Collected: 17:46
Urine Drug Abuse Screen Urgent
Date Specimen was Collected: 09/28/23
Time Specimen was Collected: 17:46
09/28/23 18:14
Add On- LAB Urgent
Tests Added?: alcohol
09/28/23 20:53
Add On- LAB Urgent
Tests Added?: urine drug abuse screen
Abnormal Lab Results
09/28/23 09/28/23
17:47 18:02
WBC 12.7 H 10^3/uL
(4.8-10.8)
RBC 3.84 L 10^6/uL
(4.20-5.40)
Hct 36.6 L %
(37.0-47.0)
MCH 33.6 H pg
(27.0-31.0)
Plt Count 465 H 10^3/uL
(130-400)
Abs Immat Gran (auto) 0.1 H 10^3/uL
(0-0.05)
Absolute Lymphs (auto) 4.7 H 10^3/uL
(1.2-3.4)
Absolute Monos (auto) 1.4 H 10^3/uL
(0.1-0.6)
Monocytes % 11.2 H %
(1.7-9.3)
BUN 19 H mg/dl
(7-17)
Creatinine 0.5 L mg/dL
(0.6-1.0)
Glucose 131 H mg/dl
(70-99)
U Marijuana (THC) Screen Positive H
(Negative)
09/28/23 17:47
09/28/23 17:47
Vital Signs
Initial and Last Documented VS:
Initial Vital Signs
Temp Pulse Resp BP Pulse Ox
98.3 F 87 20 179/98 96
09/28/23 16:29 09/28/23 16:29 09/28/23 16:29 09/28/23 16:29 09/28/23 16:29
Last Documented Vital Signs
Temp Pulse Resp BP Pulse Ox
98.3 F 87 20 164/84 94
09/28/23 16:29 09/28/23 16:29 09/28/23 16:29 09/28/23 22:56 09/28/23 17:27
MDM/Problems Addressed
MDM/Problems Addressed:
Patient remains hemodynamically stable during observation in ED, along with unremarkable workup, including blood work, EKG, and urinalysis. Patient able to tolerate sandwich in ED without difficulty. Discussed with Dr. Whipple, GI - recommends
adding OTC FD Janelle medication to protonix and f/u with as outpatient. GI office will contact patient for outpatient f/u. Patient expresses understanding at time of discharge.
*EKG
Interpreted by ED Provider?: Yes
EKG Intrepretation Date: 09/28/23
Heart Rate: 79
Rate: normal
Rhythm: sinus
[place]: normal axis
Interval: normal interval
*Critical Care Note
Total Time (30-74mins, 75-104mins- exclusive of procedures): Not Applicable
ED Attending Note
-
Portions of this chart may have been created with voice recognition software.� Occasional wrong word or��sound alike� substitutions may have occurred due to the inherent limitations of voice recognition software.
Discharge Plan
Departure
Patient Disposition: Home (Routine Discharge)
Date of Disposition: 09/28/23
Time of Disposition: 22:30
Patient with high blood pressure during this ER visit?: Yes
Condition: Good
Discharge Problem:
Abdominal pain
Instructions: Abdominal Pain, Adult ED
Prescriptions:
No Action
fluticasone propion-salmeterol [Advair Diskus] 250-50 mcg/dose Blister With Device
1 inh INHALATION R BIDPRN PRN (Reason: sob)
aspirin 81 mg Tablet,Delayed Release (Dr/Ec)
81 mg PO DAILY
acetaminophen [Tylenol Extra Strength] 500 mg Tablet
1,000 mg PO DAILYPRN PRN (Reason: mild pain)
carvedilol 3.125 mg Tablet
3.125 mg PO BID
methotrexate sodium 2.5 mg Tablet
17.5 mg PO MO@0800
magnesium oxide 500 mg magnesium Tablet
500 mg PO DAILY
omeprazole 20 mg Capsule,Delayed Release(Dr/Ec)
20 mg PO DAILY
folic acid 1 mg Tablet
1 mg PO DAILY
zinc 50 mg Tablet
50 mg PO DAILY
Prolia 60 mg/mL Syringe
60 mg SC [id number]
Humira(CF) Pen 40 mg/0.4 mL Pen Injector Kit
40 mg SC Q2W
[place] 3
1 cap PO DAILY
Referrals:
Junior Penaloza MD [Active] -
Mae Fragoso MD [Family Provider] -
Activity Restrictions/Additional Instructions:
As discussed, please follow-up with your GI physician for further evaluation and treatment. In the meantime, please continue take Protonix along with czoi-pla-epojurh medication called FD JANELLE for symptomatic relief.
Interventions
Interventions:
*Risk Screen - Suicide Last Done: 09/28/23 17:27
*General Assessment Last Done: 09/28/23 17:27
*Neglect/Abuse Screening Last Done: 09/28/23 17:27
ED- Fall Risk Assessment Last Done: 09/28/23 17:27
*ED COVID-19 Vaccine History Last Done: 09/28/23 17:27
*Nursing Disposition Last Done: 09/28/23 23:09
Discharge Date and Time
Discharge Date/Time: 09/28/23 23:11
[2023-09-28] MEDS: DUONEB 3 ML INH (17:58)
[2023-09-28] MEDS: PROTONIX IV 40 MG IV (17:58)
[2023-09-28] MEDS: NSS 1000 IV (17:58)
[2023-09-28 18:03] LABS: % Basophils 0.2 % (0-2); % Eosinophils 2.3 % (0-6); % Immature Granulocytes 0.4 % (0-0.5); % Monocytes 11.2 % (1.7-9.3); % Neutrophils 48.9 % (42.2-75.2); Absolute Eosinophils 0.3 10^3/uL (0-0.7); Absolute Immature Granulocytes 0.1 10^3/uL (0-0.05); Absolute Lymphocytes 4.7 10^3/uL (1.2-3.4); Absolute Monocytes 1.4 10^3/uL (0.1-0.6); Absolute Neutrophils 6.2 10^3/uL (1.4-6.5); Hematocrit 36.6 % (37.0-47.0); Hemoglobin 12.9 g/dL (12.0-16.0); Mean Corp Hgb Conc. 35.2 g/dL (33.0-37.0); Mean Corpuscular Hgb 33.6 pg (27.0-31.0); Mean Corpuscular Volume 95.3 fL (81.0-99.0); Mean Platelet Volume 9.8 fL (7.4-10.4); Nucleated Red Blood Cells % 0 %; Platelet Count 465 10^3/uL (130-400); Red Blood Cell Count 3.84 10^6/uL (4.20-5.40); Red Cell Dist. Width 12.9 % (11.5-14.5); White Blood Cell Count 12.7 10^3/uL (4.8-10.8)
[2023-09-28 18:26] LABS: D-Dimer < 0.27 ug/mlFEU (0.00-0.50)
[2023-09-28 18:26] LABS: ALT (SGPT) 25 U/L (0-35); AST (SGOT) 22 U/L (14-36); Albumin 4.1 g/dl (3.5-5.0); Alkaline Phosphatase 54 U/L (38-126); Blood Urea Nitrogen 19 mg/dl (7-17); Carbon Dioxide 24 mmol/L (22-30); Chloride 102 mmol/L (98-107); Estimated Creatinine Clearance 65 ml/min; Glucose 131 mg/dl (70-99); Magnesium 2.2 mg/dl (1.6-2.3); Sodium 138 mmol/L (135-145); Total Bilirubin 0.6 mg/dl (0.2-1.3); Total Protein 7.3 g/dl (6.3-8.2); eGFR > 60.00
[2023-09-28 18:29] LABS: Troponin I < 0.012 ng/ml
[2023-09-28 18:30] LABS: Urine Albumin Negative (Neg - Trace); Urine Bilirubin Negative (Negative); Urine Character Clear (Clear); Urine Color Yellow; Urine Glucose Negative (Negative); Urine Ketone Negative (Negative); Urine Leukocyte Negative (Negative); Urine Nitrite Negative (Negative); Urine Occult Blood Negative (Negative); Urine Urobilinogen Negative (Neg - 1+)
[2023-09-28 18:32] LABS: Alcohol None Detected
[2023-09-28 19:00] VITALS: BP 153/118
[2023-09-28 20:00] VITALS: BP 161/82
[2023-09-28 21:19] LABS: Amphetamines Negative (Negative); Barbiturates Negative (Negative); Benzodiazepines Negative (Negative); Buprenorphine Negative (Negative); Cocaine Negative (Negative); Marijuana Positive (Negative); Methadone Negative (Negative); Methamphetamines Negative (Negative); Opiates Negative (Negative); Phencyclidine Negative (Negative); Tricyclic Antidepressants Negative (Negative)
[2023-09-28 22:56] VITALS: BP 164/84
== END 2023-09-28 23:11 | disposition home or self-care (01) ==
LOC: EMR 16:21
PROVIDERS: EMERGENCY PHYSICIAN Emergency Medicine; FAMILY PHYSICIAN Family Medicine
DX: R10.9 Unspecified abdominal pain (principal); Z87.891 Personal history of nicotine dependence; R03.0 Elevated blood-pressure reading, without diagnosis of hypertension
CPT/HCPCS: 99285; 94640; 96374; 96361; 71046; 80053; 80306; 81003; 82077; 83735; 84443; 84484; 85025; 85379; 93005

== ENCOUNTER → 2023-12-02 11:48 | Outpatient (REF) | payer OTHER, SELFPAY | LOC: DHCBC/DCA 11:48 | PROVIDERS: ATTENDING PHYSICIAN Physician Assistant; FAMILY PHYSICIAN Family Medicine | DX: I25.10 Atherosclerotic heart disease of native coronary artery without angina pectoris (principal); I42.8 Other cardiomyopathies; R07.89 Other chest pain | CPT/HCPCS: 78452; 93017; A9500 ==

== ENCOUNTER → 2023-12-18 11:46 | Outpatient (REF) | payer OTHER, SELFPAY | LOC: HWRAD 11:46 | PROVIDERS: ATTENDING PHYSICIAN Physician Assistant Surgical; FAMILY PHYSICIAN Family Medicine | DX: M25.551 Pain in right hip (principal) | CPT/HCPCS: 73502 ==

== ENCOUNTER → 2024-02-19 10:30 | Outpatient (REF) | payer OTHER, SELFPAY | LOC: WDC 10:30 | PROVIDERS: ATTENDING PHYSICIAN Family Medicine; FAMILY PHYSICIAN Family Medicine | DX: N64.4 Mastodynia (principal) | CPT/HCPCS: 77061; 77065 ==

== ENCOUNTER → 2024-05-27 11:37 | Outpatient (REF) | payer OTHER, SELFPAY | LOC: HWCARD 11:37 | PROVIDERS: ATTENDING PHYSICIAN Family Medicine; REFERRING PHYSICIAN Internal Medicine Cardiovascular Disease | DX: Z01.818 Encounter for other preprocedural examination (principal); I42.8 Other cardiomyopathies | CPT/HCPCS: 93005 ==

== ENCOUNTER → 2024-06-01 12:34 | Outpatient (REF) | payer OTHER, SELFPAY | LOC: HWWDC 12:34 | PROVIDERS: ATTENDING PHYSICIAN Family Medicine | DX: Z12.31 Encounter for screening mammogram for malignant neoplasm of breast (principal) | CPT/HCPCS: 77063; 77067 ==

== ENCOUNTER 2024-07-23 09:24 | Emergency (ER) | payer OTHER, SELFPAY ==
[2024-07-23 09:35] VITALS: BP 159/83
[2024-07-23 09:44] VITALS: BP 182/72
[2024-07-23 10:00] VITALS: BP 155/90
[2024-07-23 10:08] VITALS: BMI 19.6
--- NOTE | 2024-07-23 10:08 | ED.GENMED ---
History of Present Illness
General
Chief Complaint: Chest Pain
Source: patient
Time Seen by Provider: 07/23/24 10:00
History of Present Illness
History of Present Illness:
69-year-old female with past medical history of Takotsubo cardiomyopathy, CHF, OCD/anxiety/depression presenting to the emergency department for evaluation of chest pain/tightness that has been ongoing for at least 2 weeks, intermittently radiates
towards her back and accompanied with headache, sweating, poor appetite and feeling anxious with symptoms occurring intermittently/randomly with no exacerbating or alleviating factors. Patient was concerned for possible cardiac cause of her
symptoms and due to the symptoms worsening over the 2 weeks decided come to the ER today for further evaluation. She believes that she had a stress test done in the spring which did not show any abnormalities and also saw her teaseler within
the last month or so and everything was reportedly normal at that time. Patient denies any fevers or recent illnesses, recent travel, lower extremity edema or pain, cough, abdominal pain. Family history was noted for father having cardiac stents
and bypass surgery. Social history was noted for occasional beers.
Past History
Past History
ED Past Medical History: Asthma, CAD, CHF, Psychiatric (Anxiety, Depression, Obsessive compulsive disorder) and Other (Rheumatoid arthritis and lumbar disc disease, cardiomyopathy)
ED Past Surgical History: Gynecological (partial hysterectomy) and Orthopedic (Back surgery X 2 L4-L5, Left foot surgery)
Social History
Tobacco: Former smoker
Alcohol: Occasional
Drug: Marijuana
Personal:
Living: with family
Family History
Family History: Unable to obtain
Review of Systems
Review of Systems
All Other Systems: ROS reviewed and negative except as documented in HPI and ROS
Phy Exam
Physical Exam
Physical Exam:
GENERAL: Alert , in no apparent distress
EYE: clear conjunctiva b/l
HEAD: NCAT
ENT: mmm.
CARDIAC: Regular rate and rhythm .
LUNGS: Clear breath sounds bilaterally, no acute respiratory distress, no wheezes/rales/rhonchi
ABDOMEN: Soft, without focal tenderness, no r/g, no cvat
NEUROLOGICAL: Alert and oriented
SKIN: Warm and dry, skin intact.
MUSCULOSKELETAL: No edema, well perfused.
PSYCH: Normal and appropriate interaction.
Scores
Heart Failure Risk
Heart Failure Risk Score: Not Applicable
Heart Score for Chest Pain Patients
STEMI patient?: No
History: Slightly or Non-Suspicious
ECG: Normal
Age: >/= 65 years
Risk Factors: 1 or 2 Risk Factors
Troponin: </= Normal Limit
Heart Score for Chest Pain Patients: 3
Heart Score Risk: 2.5% MACE over next 6 weeks
Withdrawal Assessment of Alcohol
Withdrawal Assessment Completed?: Not applicable
Course
Orders/Labs/Results
Orders:
Orders
07/23/24 09:39
EKG [Electrocardiogram (*1)] Urgent
Reason for Study: Chest Pain
EKG- Treatment ONCE
07/23/24 10:00
D-Dimer Urgent
07/23/24 10:07
Complete Blood Count/With Diff Urgent
Comprehensive Metabolic Panel Urgent
Lipase Urgent
Comment: ADD ON
Troponin I Urgent
07/23/24 10:12
Add On- LAB Urgent
Tests Added?: lipase
07/23/24 10:14
Alprazolam [Xanax] 1 mg PO NOW STA
07/23/24 11:38
CR Chest - 2 Views Urgent
Comment:
Reason For Exam: chest pain
Abnormal Lab Results
07/23/24
10:07
RBC 3.77 L 10^6/uL
(4.20-5.40)
MCV 99.2 H fL
(81.0-99.0)
MCH 33.2 H pg
(27.0-31.0)
Absolute Lymphs (auto) 4.1 H 10^3/uL
(1.2-3.4)
Absolute Monos (auto) 0.8 H 10^3/uL
(0.1-0.6)
Eosinophils % 6.3 H %
(0-6)
Creatinine 0.5 L mg/dL
(0.6-1.0)
Glucose 106 H mg/dl
(70-99)
07/23/24 10:07
07/23/24 10:07
Vital Signs
Initial and Last Documented VS:
Initial Vital Signs
Temp Pulse Resp BP Pulse Ox
98.2 F 68 18 159/83 99
07/23/24 09:35 07/23/24 09:35 07/23/24 09:35 07/23/24 09:35 07/23/24 09:35
Last Documented Vital Signs
Temp Pulse Resp BP Pulse Ox
98.2 F 60 20 121/53 95
07/23/24 09:35 07/23/24 12:45 07/23/24 12:45 07/23/24 12:00 07/23/24 12:45
MDM/Problems Addressed
Differential Diagnosis Includes:
ACS, PE, dissection, GERD/gastritis, pancreatitis, MSK etiology, anxiety
MDM/Problems Addressed:
69-year-old female presenting the ER for evaluation of a multitude of symptoms surrounded by having chest discomfort over the last 2 weeks, gradually worsening. No exacerbating or alleviating factors. Patient stating she has been working as normal
and not exerting herself as well as not experiencing these symptoms while exerting herself. Will check labs including a troponin and D-dimer. GI labs ordered as well. Disposition pending
Chronic conditions affecting care: Cardiomyopathy
*Radiology
Radiology exam reviewed: preliminary read by ED provider (normal CXR)
*Pulse Oximetry
Patient hypoxic: no
*EKG
Comparison EKG: no changes
Heart Rate: 67
Rate: normal
Rhythm: sinus
Ischemia: no ischemia
*Pole Truck Driver Interpretation
Rate: normal
Rhythm: sinus
*Critical Care Note
Total Time (30-74mins, 75-104mins- exclusive of procedures): Not Applicable
Data Reviewed
Review of Other/Old Records Reveals: Records (Patient had a negative stress test in November of this year)
Patient Management
Escalation/DeEscalation of care consider admission/obs:
Patient's workup unremarkable for any acute pathologies. She feel better at this time. Will notify chest pain hotline to help expedite outpatient follow-up. Patient aware of return precautions. Stable for discharge home.
ED Attending Note
-
Portions of this chart may have been created with voice recognition software.� Occasional wrong word or��sound alike� substitutions may have occurred due to the inherent limitations of voice recognition software.
Discharge Plan
Departure
Patient Disposition: Home (Routine Discharge)
Date of Disposition: 07/23/24
Time of Disposition: 12:37
Patient with high blood pressure during this ER visit?: Yes
Discharge Problem:
Chest pain
Instructions: Chest Pain DCA Follow Up
Prescriptions:
No Action
fluticasone propion-salmeterol [Advair Diskus] 250-50 mcg/dose Blister With Device
1 inh INHALATION R BIDPRN PRN (Reason: sob)
aspirin 81 mg Tablet,Delayed Release (Dr/Ec)
81 mg PO DAILY
acetaminophen [Tylenol Extra Strength] 500 mg Tablet
1,000 mg PO DAILYPRN PRN (Reason: mild pain)
carvedilol 3.125 mg Tablet
3.125 mg PO BID
methotrexate sodium 2.5 mg Tablet
17.5 mg PO MO@0800
magnesium oxide 500 mg magnesium Tablet
500 mg PO DAILY
omeprazole 20 mg Capsule,Delayed Release(Dr/Ec)
20 mg PO DAILY
folic acid 1 mg Tablet
1 mg PO DAILY
zinc 50 mg Tablet
50 mg PO DAILY
Prolia 60 mg/mL Syringe
60 mg SC [id number]
Humira(CF) Pen 40 mg/0.4 mL Pen Injector Kit
40 mg SC Q2W
[place] 3
1 cap PO DAILY
Referrals:
Marquise Alfredo DO [Family Provider] -
Interventions
Interventions:
*Risk Screen - Suicide Last Done: 07/23/24 09:37
*General Assessment Last Done: 07/23/24 09:35
*Neglect/Abuse Screening Last Done: 07/23/24 09:35
ED- Fall Risk Assessment Last Done: 07/23/24 12:45
*ED COVID-19 Vaccine History Last Done: 07/23/24 09:35
*Nursing Disposition Last Done: 07/23/24 12:45
ED- Cardiac Assessment Last Done: 07/23/24 10:10
Discharge Date and Time
Discharge Date/Time: 07/23/24 12:45
Print Language: [id number]
[2024-07-23 10:17] LABS: % Basophils 1.1 % (0-2); % Eosinophils 6.3 % (0-6); % Immature Granulocytes 0.3 % (0-0.5); % Lymphocytes 38.9 % (20.5-51.1); % Monocytes 7.1 % (1.7-9.3); % Neutrophils 46.3 % (42.2-75.2); Absolute Basophils 0.1 10^3/uL (0-0.2); Absolute Eosinophils 0.7 10^3/uL (0-0.7); Absolute Lymphocytes 4.1 10^3/uL (1.2-3.4); Absolute Monocytes 0.8 10^3/uL (0.1-0.6); Absolute Neutrophils 4.9 10^3/uL (1.4-6.5); Hematocrit 37.4 % (37.0-47.0); Hemoglobin 12.5 g/dL (12.0-16.0); Mean Corp Hgb Conc. 33.4 g/dL (33.0-37.0); Mean Corpuscular Hgb 33.2 pg (27.0-31.0); Mean Corpuscular Volume 99.2 fL (81.0-99.0); Mean Platelet Volume 9.9 fL (7.4-10.4); Nucleated Red Blood Cells % 0 %; Platelet Count 298 10^3/uL (130-400); Red Blood Cell Count 3.77 10^6/uL (4.20-5.40); Red Cell Dist. Width 13.6 % (11.5-14.5); White Blood Cell Count 10.6 10^3/uL (4.8-10.8)
[2024-07-23 10:26] LABS: ALT (SGPT) 28 U/L (0-35); AST (SGOT) 32 U/L (14-36); Albumin 4.7 g/dl (3.5-5.0); Alkaline Phosphatase 45 U/L (38-126); Blood Urea Nitrogen 8 mg/dl (7-17); Calcium 9.2 mg/dl (8.4-10.2); Carbon Dioxide 29 mmol/L (22-30); Chloride 105 mmol/L (98-107); Estimated Creatinine Clearance 65 ml/min; Glucose 106 mg/dl (70-99); Lipase 100 U/L (23-300); Sodium 142 mmol/L (135-145); Total Bilirubin 0.6 mg/dl (0.2-1.3); Total Protein 7.5 g/dl (6.3-8.2); eGFR > 60.00
[2024-07-23 10:38] LABS: Troponin I < 0.012 ng/ml
[2024-07-23] MEDS: XANAX 1 MG PO (10:54)
[2024-07-23 11:00] VITALS: BP 144/66
[2024-07-23 11:35] LABS: D-Dimer < 0.27 ug/mlFEU (0.00-0.50)
[2024-07-23 12:00] VITALS: BP 121/53
== END 2024-07-23 12:45 | disposition home or self-care (01) ==
LOC: EMR 09:24
PROVIDERS: Physician Assistant Medical; EMERGENCY PHYSICIAN Student in an Organized Health Care Education/Training Program; FAMILY PHYSICIAN Family Medicine
DX: R07.89 Other chest pain (principal); I51.81 Takotsubo syndrome; I50.9 Heart failure, unspecified; F42.9 Obsessive-compulsive disorder, unspecified; F41.9 Anxiety disorder, unspecified; J45.909 Unspecified asthma, uncomplicated; I25.10 Atherosclerotic heart disease of native coronary artery without angina pectoris; I42.9 Cardiomyopathy, unspecified; M06.9 Rheumatoid arthritis, unspecified; Z87.891 Personal history of nicotine dependence; Z95.5 Presence of coronary angioplasty implant and graft
CPT/HCPCS: 99283; 71046; 80053; 83690; 84484; 85025; 85379; 93005

== ENCOUNTER → 2025-06-15 13:52 | Outpatient (REF) | payer OTHER, SELFPAY | LOC: HWWDC 13:52 | PROVIDERS: ATTENDING PHYSICIAN Obstetrics & Gynecology; FAMILY PHYSICIAN Family Medicine | DX: Z12.31 Encounter for screening mammogram for malignant neoplasm of breast (principal) | CPT/HCPCS: 77063; 77067 ==